=== PATIENT | female | born 1940 | race Caucasian/White ===

== ENCOUNTER → 2016-07-19 | Outpatient (CLI) | payer OTHER, BC ==
--- NOTE | 2016-07-19 12:44 | NM ---
Nuclear Medicine Whole Body Bone Scan Clinical Indications: Follow up metastasis. History of breast cancer Technique: 22.7 mCi technetium 99m MDP were injected intravenously. Delayed images of the skeleton were obtained in anterior and posterior projections. Comparison: February 16, 2016. Findings: Given differences of window leveling and technique, there has been interval response to tr eatment of the multifocal metastatic lesions of the right and left ribs and thoracic and lumbar spine . Degenerative changes of the shoulders, hips, and knees are again present. There is a right knee art hroplasty. Improved bony metastatic disease of the pelvis and femurs. Mild interval improvement of th e sternal uptake. Impression: Interval response to therapy with persistent but decreased bony metastatic disease of the axial and appendicular skeleton, as described above.
== END ==
LOC: FIMAGING 07:44
PROVIDERS: ATTEND Internal Medicine Hematology & Oncology
DX: C79.51 Secondary malignant neoplasm of bone (principal); Z85.3 Personal history of malignant neoplasm of breast
CPT/HCPCS: 78306; A9503

== ENCOUNTER → 2016-07-30 | Outpatient (CLI) | payer OTHER, BC ==
[2016-07-29 14:05] LABS: % IMMATURE GRANULOCYTES 0.4 % (0.0-1.1); ABSOLUTE IMMATURE GRANULOCYTES 0.01 10^3/uL (0-0.10); ABSOLUTE NRBC COUNT 0.02 10^3/uL (0-0.01); HEMATOCRIT 21.3 % (38.0-47.0); HEMOGLOBIN 7.1 g/dL (12.6-16.3); MEAN CELL HEMOGLOBIN CONC. 33.3 g/dL (32.4-36.7); MEAN CELL VOLUME 99.1 fL (81.5-99.8); NRBC-AUTO% 0.8 % (0.0-0.2); RED BLOOD CELL COUNT 2.15 10^6/uL (4.18-5.33); RED CELL DISTRIBUTION WIDTH 23.9 % (11.5-15.2)
[2016-07-29 14:43] LABS: ALANINE AMINOTRANSFERASE 59 IU/L (9-52); ALBUMIN 3.8 g/dL (3.5-5.0); ALKALINE PHOSPHATASE 127 IU/L (38-126); ANION GAP 12 mEq/L (8-16); ASPARTATE AMINOTRANSFERASE 79 IU/L (14-46); CALCIUM 9.1 mg/dL (8.5-10.4); CARBON DIOXIDE 24 mEq/l (22-31); CHLORIDE 103 mEq/L (97-110); CREATININE 0.8 mg/dL (0.6-1.0); GLOMERULAR FILTRATION RATE > 60; GLUCOSE 118 mg/dL (70-100); POTASSIUM 5.2 mEq/L (3.5-5.2); SODIUM 139 mEq/L (134-144); TOTAL PROTEIN 6.6 g/dL (6.3-8.2)
== END ==
LOC: RMCCLAB 07-29 06:13 → FOBOP 07:51 → EDSTATUS 07:51
PROVIDERS: ATTEND Internal Medicine Hematology & Oncology
PROC: 30233N1 Transfusion of Nonautologous Red Blood Cells into Peripheral Vein, Percutaneous Approach (ICD-10-PCS; principal; 2016-07-30)
DX: D64.81 Anemia due to antineoplastic chemotherapy (principal); C50.112 Malignant neoplasm of central portion of left female breast; C79.51 Secondary malignant neoplasm of bone
CPT/HCPCS: 36430; P9016; 86300-90

== ENCOUNTER → 2016-09-28 | Outpatient (CLI) | payer OTHER, BC ==
[2016-09-27 15:14] LABS: % IMMATURE GRANULOCYTES 0.5 % (0.0-1.1); ABSOLUTE IMMATURE GRANULOCYTES 0.02 10^3/uL (0-0.10); ABSOLUTE NRBC COUNT 0.11 10^3/uL (0-0.01); HEMATOCRIT 17.1 % (38.0-47.0); HEMOGLOBIN 5.5 g/dL (12.6-16.3); MEAN CELL HEMOGLOBIN 33.1 pg (27.9-34.1); MEAN CELL HEMOGLOBIN CONC. 32.2 g/dL (32.4-36.7); MEAN PLATELET VOLUME 11.2 fL (8.7-11.7); RED BLOOD CELL COUNT 1.66 10^6/uL (4.18-5.33)
[2016-09-27 15:16] LABS: NRBC-AUTO% 2.7 % (0.0-0.2)
[2016-09-27 15:43] LABS: ALANINE AMINOTRANSFERASE 31 IU/L (9-52); ALBUMIN 3.9 g/dL (3.5-5.0); ALKALINE PHOSPHATASE 114 IU/L (38-126); ANION GAP 10 mEq/L (8-16); ASPARTATE AMINOTRANSFERASE 57 IU/L (14-46); BILIRUBIN,TOTAL 1.1 mg/dL (0.1-1.4); CALCIUM 9.2 mg/dL (8.5-10.4); CARBON DIOXIDE 21 mEq/l (22-31); CHLORIDE 107 mEq/L (97-110); CREATININE 0.8 mg/dL (0.6-1.0); GLOMERULAR FILTRATION RATE > 60; GLUCOSE 107 mg/dL (70-100); POTASSIUM 4.4 mEq/L (3.5-5.2); SODIUM 138 mEq/L (134-144); TOTAL PROTEIN 6.7 g/dL (6.3-8.2)
[~2016-09-28] MED LIST: ALTEPLASE 2 MG VIAL IVP ONE
== END ==
LOC: RMCCLAB 09-27 07:19 → EDSTATUS 08:55 → FOBOP 08:56
PROVIDERS: ATTEND Internal Medicine Hematology & Oncology
PROC: 30233N1 Transfusion of Nonautologous Red Blood Cells into Peripheral Vein, Percutaneous Approach (ICD-10-PCS; principal; 2016-09-28)
DX: C50.112 Malignant neoplasm of central portion of left female breast (principal); D61.1 Drug-induced aplastic anemia; T45.1X5A Adverse effect of antineoplastic and immunosuppressive drugs, initial encounter; T82.599A Other mechanical complication of unspecified cardiac and vascular devices and implants, initial encounter; Z45.2 Encounter for adjustment and management of vascular access device
CPT/HCPCS: 36430; J2997; P9016; J1642

== ENCOUNTER → 2016-10-12 | Outpatient (CLI) | payer OTHER, BC ==
[~2016-10-12] MED LIST changes: -ALTEPLASE 2 MG VIAL IVP ONE; +LIDOCAINE 1% 30 ML SDV ONE; +NA BICARBONATE 50 MEQ/50 ML VIAL ONE
[2016-10-13 16:09] LABS: FINAL DIAGNOSIS See Comments; MICROSCOPIC DESCRIPTION See Comments
== END ==
LOC: FIMAGING 09:37
PROVIDERS: ATTEND Internal Medicine Hematology & Oncology
PROC: 07B13ZX Excision of Right Neck Lymphatic, Percutaneous Approach, Diagnostic (ICD-10-PCS; principal; 2016-10-12)
DX: C50.919 Malignant neoplasm of unspecified site of unspecified female breast (principal); C77.0 Secondary and unspecified malignant neoplasm of lymph nodes of head, face and neck
CPT/HCPCS: 88184-90; 88185-91

== ENCOUNTER 2016-10-22 09:37 | Outpatient (CLI) | payer OTHER, BC ==
[2016-10-21 14:35] LABS: % IMMATURE GRANULOCYTES 0.5 % (0.0-1.1); ABSOLUTE IMMATURE GRANULOCYTES 0.02 10^3/uL (0-0.10); ABSOLUTE NRBC COUNT 0.14 10^3/uL (0-0.01); HEMATOCRIT 21.7 % (38.0-47.0); MEAN CELL HEMOGLOBIN 30.7 pg (27.9-34.1); MEAN CELL HEMOGLOBIN CONC. 32.3 g/dL (32.4-36.7); MEAN CELL VOLUME 95.2 fL (81.5-99.8); MEAN PLATELET VOLUME 10.3 fL (8.7-11.7); RED BLOOD CELL COUNT 2.28 10^6/uL (4.18-5.33); RED CELL DISTRIBUTION WIDTH 20.1 % (11.5-15.2)
[2016-10-21 14:42] LABS: NRBC-AUTO% 3.6 % (0.0-0.2)
[2016-10-21 15:40] LABS: ALANINE AMINOTRANSFERASE 38 IU/L (9-52); ALKALINE PHOSPHATASE 149 IU/L (38-126); ANION GAP 13 mEq/L (8-16); ASPARTATE AMINOTRANSFERASE 64 IU/L (14-46); CALCIUM 9.5 mg/dL (8.5-10.4); CARBON DIOXIDE 21 mEq/l (22-31); CHLORIDE 106 mEq/L (97-110); CREATININE 0.7 mg/dL (0.6-1.0); GLOMERULAR FILTRATION RATE > 60; GLUCOSE 99 mg/dL (70-100); SODIUM 140 mEq/L (134-144); TOTAL PROTEIN 7.2 g/dL (6.3-8.2)
[2016-10-22] MEDS ORDERED: ALTEPLASE 2 MG VIAL IVP ONE (10:30)
== END 2016-10-22 16:25 | disposition home or self-care (01) ==
LOC: FOBOP 09:37
PROVIDERS: ATTEND Internal Medicine Hematology & Oncology
PROC: 30243N1 Transfusion of Nonautologous Red Blood Cells into Central Vein, Percutaneous Approach (ICD-10-PCS; principal; 2016-10-22)
DX: C50.112 Malignant neoplasm of central portion of left female breast (principal); D64.81 Anemia due to antineoplastic chemotherapy; Z45.2 Encounter for adjustment and management of vascular access device
CPT/HCPCS: 36430; J1642; J2997; P9016; P9021

== ENCOUNTER 2016-11-08 23:38 | Emergency (ER) | payer OTHER, BC ==
[2016-11-08 23:47] VITALS: PULSE 88; TEMP 98.2
[2016-11-09 01:03] LABS: % IMMATURE GRANULYOCYTES 0.7 % (0.0-1.1); ABSOLUTE IMMATURE GRANULOCYTES 0.01 10^3/uL (0.00-0.10); ADD DIFF? NO; ADD MORPH? NO; ADD SCAN? YES; ANION GAP 8 mEq/L (8-16); ATYPICAL LYMPHOCYTE FLAG 0 (0-99); CALCIUM 9.2 mg/dL (8.5-10.4); CARBON DIOXIDE 25 mEq/l (22-31); CHLORIDE 107 mEq/L (97-110); CREATININE 0.9 mg/dL (0.6-1.0); FRAGMENT RBC FLAG 20 (0-99); GLOMERULAR FILTRATION RATE > 60; GLUCOSE 109 mg/dL (70-100); HEMATOCRIT 20.9 % (38.0-47.0); LEFT SHIFT FLG 10 (0-99); LIPEMIA HEMOLYSIS FLAG 80 (0-99); MEAN CELL HEMOGLOBIN 29.5 pg (27.9-34.1); MEAN CELL HEMOGLOBIN CONCENTR. 33.5 g/dL (32.4-36.7); MEAN CELL VOLUME 88.2 fL (81.5-99.8); MEAN PLATELET VOLUME 12.6 fL (8.7-11.7); PLATELET CLUMPS FLAG 0 (0-99); PLATELET COUNT 56 10^3/uL (150-400); POTASSIUM 4.7 mEq/L (3.5-5.2); RED BLOOD CELL COUNT 2.37 10^6/uL (4.18-5.33); RED CELL DISTRIBUTION WIDTH 17.1 % (11.5-15.2); SODIUM 140 mEq/L (134-144)
[2016-11-09] MEDS ORDERED: fentaNYL 100 MCG/2 ML INJ IVP ONE (01:07)
[2016-11-09 01:36] LABS: SCAN POSITIVE
[2016-11-09 01:46] LABS: HYPOCHROMIA 1+; MACROCYTES 1+; MICROCYTES 1+; PLATELET ESTIMATE DECREASED (ADEQ)
[2016-11-09 02:05] LABS: COLOR YELLOW; LEUKOCYTE ESTERASE,URINE 3+ (NEGATIVE); NITRITE,URINE NEGATIVE (NEGATIVE)
[2016-11-09 02:18] LABS: BACTERIA TRACE /hpf (NONE SEEN); MUCUS TRACE /lpf (NONE-1+)
--- NOTE | 2016-11-09 02:18 | EDPHY ---
H & P Stated Complaint: back and left leg pain, since 1700 Time Seen by Provider: 11/08/16 23:59 HPI/ROS: Chief Complaint: Back and leg pain HPI: 76-year-old woman with a history of metastatic breast cancer presenting with new onset of bilateral back and leg pain that started about 5 o'clock yesterday afternoon. Patient has taken 2 doses of Advil without significant relief. No new numbness or weakness. She is ambulating with some difficulty. Does not have a history of the same. No falls or recent trauma. He does have known metastasis to the lumbar spine. She also recently started Ibrance and Faslodex 2 weeks ago. She is a patient Dr. Bajwa. No fevers or chills. No chest pain or shortness of breath. No cough. No abdominal pain. No urinary urgency or frequency. ROS: 10 point Review of Systems is negative except as noted in the HPI. PMH: Metastatic breast cancer Social History: [No] smoking, [no] alcohol, [ no recreational drug use] Family History: [non-contributory] Physical Exam: Gen: [Awake], [Alert], [No Distress] HEENT: [ ] [Nose: no rhinorrhea] Eyes: [PERRLA], [EOMI] Mouth: [Moist mucosa] [] Neck: [Supple], [no JVD] Chest: [nontender], [lungs clear to auscultation] Heart: [S1, S2 normal], [no murmur] Abd: [Soft], [non-tender], [no guarding] Back: [no CVA tenderness], [no] midline tenderness, moderate bilateral paraspinal tenderness extending down her bilateral gluteus muscles. Ext: [no] edema, bilateral thigh flexors and extensors tenderness which is mild. Skin: [no rash] Neuro: [CN II-XII intact], [Sensation grossly intact], Strength [5]/5 in [ bilateral] [upper and] [lower] extremities in both proximal and distal flexors and extensors. - Personal History Current Tetanus/Diphtheria Vaccine: Unsure Current Tetanus Diphtheria and Acellular Pertussis (TDAP): Unsure - Medical/Surgical History Hx Asthma: No Hx Chronic Respiratory Disease: No Hx Diabetes: No Hx Cardiac Disease: No Hx Renal Disease: No Hx Cirrhosis: No Hx Alcoholism: No Hx HIV/AIDS: No Hx Splenectomy or Spleen Trauma: No Other PMH: Last chemo Jul 22, reviewing plans; right knee replacement; left lumpectomy; metastatic cancer to bones; high cholesterol; DVT in right leg Dx , now xarelto - Social History Smoking Status: Never smoked Constitutional: Initial Vital Signs Temperature (C) 36.8 C 11/08/16 23:43 Heart Rate 88 11/08/16 23:43 Respiratory Rate 16 11/08/16 23:43 Blood Pressure 133/81 H 11/08/16 23:43 O2 Sat (%) 95 11/08/16 23:43 O2 Delivery Mode Room Air Allergies/Adverse Reactions: codeine [Codeine] Allergy (Severe, Verified 07/12/10 09:51) Vomiting Home Medications: Medication Instructions Recorded Atorvastatin Calcium [Lipitor 20 20 mg PO HS 02/19/16 mg (*)] Calcium Carb W/Vit D [Calcium Carb 3 tab PO BID 02/19/16 W/Vit D 500/200 (*)] Cholecalciferol Vit D3 [Vitamin D3 2,000 units PO DAILY 02/19/16 2000 units tab (OTC)] Citalopram Hydrobromide 10 mg PO DAILY 02/19/16 [Citalopram HBr] Fluticasone Nasal [Flonase Nasal 2 sprays NASAL PRN PRN 02/19/16 [place]] Ibuprofen [Advil] 2 tab PO PRN PRN 10/22/16 Faslodex 11/08/16 Ibrance 11/08/16 Medical Decision Making ED Course/Re-evaluation: Patient with bilateral back and lower extremity myalgias. She has no neurologic symptoms today. Plain films of her lumbar spine and pelvis are not suggestive of acute pathologic fracture at this time. Patient's pain is improved with IV fentanyl. She is pancytopenic secondary to her chemotherapy. I have discussed with , on-call for Dr. Bajwa. He does not feel she needs any further workup at this time. On her pain is controlled she can be discharged home and she will follow up with Dr. Bajwa later this morning. Patient is in agreement with this plan. Will discharge with follow-up later today. - Data Points Laboratory Results: Laboratory Results 11/09/16 00:45 11/09/16 00:45 11/09/16 11/09/16 11/09/16 01:55 00:45 00:45 WBC RBC Hgb Hct MCV MCH MCHC RDW Plt Count MPV Neut % (Auto) Lymph % (Auto) [place] % (Auto) Eos % (Auto) Baso % (Auto) Nucleat RBC Rel Count Absolute Neuts (auto) Absolute Lymphs (auto) Absolute Monos (auto) Absolute Eos (auto) Absolute Basos (auto) Absolute Nucleated RBC Immature Gran % Seg Neutrophils % Band Neutrophils % Lymphocytes % Monocytes % Immature Gran # Absolute Seg Neuts Absolute Band Neuts Absolute Lymphocytes Absolute Monocytes Platelet Estimate Hypochromasia Microcytic Cells Tear Drop Cells Oval Macrocytes Sodium 140 mEq/L mEq/L (134-144) Potassium 4.7 mEq/L mEq/L (3.5-5.2) Chloride 107 mEq/L mEq/L (97-110) Carbon Dioxide 25 mEq/l mEq/l (22-31) Anion Gap 8 mEq/L mEq/L (8-16) BUN 23 mg/dL mg/dL (7-23) Creatinine 0.9 mg/dL mg/dL (0.6-1.0) Estimated GFR > 60 Glucose 109 mg/dL H mg/dL (70-100) Calcium 9.2 mg/dL mg/dL (8.5-10.4) Creatine Kinase 113 IU/L IU/L (0-156) Urine Color YELLOW Urine Appearance CLEAR Urine pH 5.0 (5.0-7.5) Ur Specific [place] 1.017 (1.002-1.030) Urine Protein NEGATIVE (NEGATIVE) Urine Ketones NEGATIVE (NEGATIVE) Urine Blood NEGATIVE (NEGATIVE) Urine Nitrate NEGATIVE (NEGATIVE) Urine Bilirubin NEGATIVE (NEGATIVE) Urine Urobilinogen NEGATIVE EU EU (0.2-1.0) Ur Leukocyte Esterase 3+ H (NEGATIVE) Urine RBC Pending Urine WBC Pending Ur Epithelial Cells Pending Urine Glucose NEGATIVE (NEGATIVE) 11/09/16 00:45 WBC 1.50 10^3/uL L 10^3/uL (3.80-9.50) RBC 2.37 10^6/uL L 10^6/uL (4.18-5.33) Hgb 7.0 g/dL L g/dL (12.6-16.3) Hct 20.9 % L % (38.0-47.0) MCV 88.2 fL fL (81.5-99.8) MCH 29.5 pg pg (27.9-34.1) MCHC 33.5 g/dL g/dL (32.4-36.7) RDW 17.1 % H % (11.5-15.2) Plt Count 56 10^3/uL L 10^3/uL (150-400) MPV 12.6 fL H fL (8.7-11.7) Neut % (Auto) 39.4 % % (39.3-74.2) Lymph % (Auto) 53.3 % H % (15.0-45.0) [place] % (Auto) 5.3 % % (4.5-13.0) Eos % (Auto) 1.3 % % (0.6-7.6) Baso % (Auto) 0.0 % L % (0.3-1.7) Nucleat RBC Rel Count 0.0 % % (0.0-0.2) Absolute Neuts (auto) 0.59 10^3/uL L 10^3/uL (1.70-6.50) Absolute Lymphs (auto) 0.80 10^3/uL L 10^3/uL (1.00-3.00) Absolute Monos (auto) 0.08 10^3/uL L 10^3/uL (0.30-0.80) Absolute Eos (auto) 0.02 10^3/uL L 10^3/uL (0.03-0.40) Absolute Basos (auto) 0.00 10^3/uL L 10^3/uL (0.02-0.10) Absolute Nucleated RBC 0.00 10^3/uL 10^3/uL (0-0.01) Immature Gran % 0.7 % % (0.0-1.1) Seg Neutrophils % 41 % % Band Neutrophils % 2 % % Lymphocytes % 56 % % Monocytes % 1 % % Immature Gran # 0.01 10^3/uL 10^3/uL (0.00-0.10) Absolute Seg Neuts 0.62 10^/uL L 10^/uL (1.70-6.50) Absolute Band Neuts 0.03 10^3/uL 10^3/uL (0.00-0.70) Absolute Lymphocytes 0.84 10^3/uL L 10^3/uL (1.00-3.00) Absolute Monocytes 0.02 10^3/uL L 10^3/uL (0.30-0.80) Platelet Estimate DECREASED L (ADEQ) Hypochromasia 1+ H Microcytic Cells 1+ H Tear Drop Cells 1+ H Oval Macrocytes 1+ H Sodium Potassium Chloride Carbon Dioxide Anion Gap BUN Creatinine Estimated GFR Glucose Calcium Creatine Kinase Urine Color Urine Appearance Urine pH Ur Specific [place] Urine Protein Urine Ketones Urine Blood Urine Nitrate Urine Bilirubin Urine Urobilinogen Ur Leukocyte Esterase Urine RBC Urine WBC Ur Epithelial Cells Urine Glucose Medications Given: Discontinued Medications Fentanyl (Sublimaze) 50 mcg IVP EDNOW ONE Stop: 11/09/16 01:08 Last Admin: 11/09/16 01:16 Dose: 50 mcg Morphine Sulfate (Morphine) 4 mg IVP ONCE ONE Stop: 11/09/16 01:06 Last Admin: 11/09/16 02:09 Dose: Not Given Departure - Departure Disposition: Home, Routine, Self-Care Clinical Impression: Leg pain, Back pain Condition: Good Instructions: Musculoskeletal Pain (ED) Additional Instructions: You may take hydrocodone 1-2 every 4 hours as needed for pain. Follow up with Dr. Bajwa later this morning. Referrals: Melissa Baker MD [Primary Care Provider] - As per Instructions John Bajwa MD [Medical Doctor] - As per Instructions
[2016-11-09] MEDS ORDERED: OXYCODONE/APAP 5/325 TAB PO ONE ×2 (02:20→02:38)
[2016-11-09] MEDS ORDERED: OXYCODONE/APAP 5/325 TAB ONE (02:20)
[2016-11-09] MEDS ORDERED: OXYCODONE/APAP 5/325MG PREPACK#4 BTL TAKEHOME ONE (03:48)
[2016-11-09 04:15] VITALS: BP 148/87; RESP 18; O2SAT 93
== END 2016-11-09 04:15 | disposition home or self-care (01) ==
DX: M54.9 Dorsalgia, unspecified (principal); M79.605 Pain in left leg; Z79.01 Long term (current) use of anticoagulants; Z85.3 Personal history of malignant neoplasm of breast
CPT/HCPCS: 72100; 72170; 96374; 99284; J1642; J3010

== ENCOUNTER 2016-11-09 12:53 | Inpatient (IN) | payer OTHER, BC ==
[2016-11-09] MEDS ORDERED: ONDANSETRON 4 MG/2 ML VIAL IVP PRN (13:47)
[2016-11-09] MEDS ORDERED: HYDROCODONE/APAP 5/325 TAB PO PRN (13:47)
[2016-11-09] MEDS ORDERED: ACETAMINOPHEN 325 MG TAB PO PRN (13:47)
[2016-11-09] MEDS ORDERED: HYDROmorphONE/DILAUDID 1 MG/ML SYR IVP PRN (13:47)
[2016-11-09] MEDS ORDERED: LORazepam 2 MG/ML INJ IVP PRN (13:47)
[2016-11-09] MEDS ORDERED: ONDANSETRON DISINTEGRATING 4 MG TAB PO PRN (13:47)
[2016-11-09] MEDS ORDERED: NS 1,000 ML IV ONE (13:47)
[2016-11-09] MEDS ORDERED: FLUTICASONE NASAL 120 SPRAYS/16 GM MDI EACHNARE PRN (15:13)
[2016-11-09] MEDS ORDERED: IBUPROFEN 200 MG TAB PO PRN (15:13)
[2016-11-09] MEDS ORDERED: Palbociclib [Ibrance] 125 MG PO SCH (15:15)
[2016-11-09] MEDS ORDERED: BISACODYL 10 MG SUPP PR PRN (15:23)
[2016-11-09] MEDS ORDERED: POLYETHYLENE GLYCOL 3350 17 GM PKT PO PRN (15:23)
[2016-11-09] MEDS ORDERED: MAGNESIUM HYDROXIDE 30 ML UDCUP PO PRN (15:23)
[2016-11-09] MEDS ORDERED: LACTULOSE 20 GM/30 ML UDCUP PO PRN (15:23)
--- NOTE | 2016-11-09 16:09 | GHP ---
[f rep st] HISTORY AND PHYSICAL DATE OF ADMISSION: 11/09/2016 CHIEF COMPLAINT: Back pain. HISTORY OF PRESENT ILLNESS: A 76-year-old female with a history of metastatic recurrent breast [facility] who presents with sudden onset of severe lumbar back pain in the several days preceding her prese ntation. The patient noted initially pain on 1 side then on both and then over the course of the 24 hours prior to presentation developed some associated groin and leg pain. She describes the pain a s throbbing. Denies any numbness or tingling. Denies any loss of bowel or bladder control. Denies any pain higher in her spine. Does endorse that the discomfort is more severe on the left side than it is on the right. The patient denies any vision changes, headaches, lightheadedness, dysphagia, chest pain, shortness of breath, abdominal discomfort. She has experienced some nausea with the chiqui n and has been unable to tolerate oral pain medications. Denies any dysuria and hematuria, any lowe r extremity edema, any rashes. PAST MEDICAL HISTORY: Breast cancer recurrence with known bony metastases. SOCIAL HISTORY: Patient does not smoke cigarettes. Drinks occasional alcohol. Denies any illicit drugs. She has used marijuana recently in an attempt to stimulate her appetite. FAMILY HISTORY: Positive for a brother who passed in his 40s she thinks may have had breast cancer, but is not positive. ADVANCED DIRECTIVES: The patient wishes to be do not resuscitate. Her Tan would be her m edical decision maker. REVIEW OF SYSTEMS: A 10-point review of systems is negative with the exception of that reported in the history of present illness. PHYSICAL EXAMINATION: VITAL SIGNS: Blood pressure 161/89, heart rate 97, respiratory rate 18, 91% on room air, 37.5. GENERAL: This is an ill-appearing, middle-aged female, lying flat in bed. HEEN T: Notable for dry mucous membranes. Eye exam is negative for any icterus. CARDIAC: Patient is r egular rate and rhythm. She does have a systolic murmur heard best at the left sternal border. PUL MONARY: Good respiratory effort. Clear to auscultation bilaterally. GASTROINTESTINAL: Positive b owel sounds. Abdomen is soft, nontender in all 4 quadrants. MUSCULOSKELETAL: Negative for any lo wer extremity edema. The patient does not have point tenderness along her spinous processes until h er lumbar spine, more notably in the paraspinal muscles on the left than the right. Her sensation i s intact throughout and her strength is intact throughout. SKIN: Negative for any rashes. PSYCHIA TRIC: She is pleasant and cooperative on the interview and examination. DATA: White count 1.5, hematocrit 20.9, hemoglobin of 7, platelet count of 56. Creatinine 0.9, neil cium is 9.2. Urinalysis shows 3-5 white blood cells. X-ray of the pelvis obtained by the emergency department that I personally reviewed and interpreted shows no obvious fractures. They do note scattered sclerotic lesions in the lower pelvis. ASSESSMENT AND PLAN: This is a 76-year-old female with metastatic recurrent breast cancer, presenti with back pain. 1. Severe back pain, certainly concerning for possible metastases to the lumbar spine. The patient has some neurologic symptoms below with radiated pain. Denies any bowel or bladder incontinence. Will order MRI imaging of the lumbar spine. Have ordered IV oral pain medications as well as antiem etics and will follow imaging for potential treatment with steroids. 2. Metastatic breast cancer. The patient will be seen by Oncology. She is actively receiving michael tment. They will make recommendations on ongoing care. 3. Pancytopenia secondary to cancer treatment. Will continue to follow the patient's cell counts. Hemoglobin is 7. Will transfuse the patient with packed red blood cells. 4. Hypertension. I suspect this is related to pain as she does not have a history of elevated bloo d pressure. We will follow with adequate pain control. 5. Prophylaxis with Lovenox. 6. Diet regular. DISPOSITION: I expect greater than 2 midnights as the patient is presenting with pain complaints li young related to progressing cancer diagnosis. I have discussed the case with Oncology. Rik ogden be triaged to [address] [place] [address] for imaging and care. /[id number]/MODL
--- NOTE | 2016-11-09 17:19 | GCON ---
[f rep st] CONSULTATION MEDICAL ONCOLOGY FOLLOWUP CONSULTATION REFERRING PHYSICIAN: Lara Bishop MD REASON FOR CONSULTATION: Ongoing management of metastatic breast cancer and acute back pain. RECOMMENDATIONS: 1. Agree with MRI of the lumbar spine to try to determine the cause of her sudden onset of pain. 2. Agree with transfusion as you are doing. 3. Agree with efforts at pain control. 4. Specific treatment of the pain in her back will depend on the etiology. ASSESSMENT: This 76-year-old, white female with a history of breast cancer dating back to 1998 pres ented yesterday with sudden onset of low back pain with radiation into her legs. She does not recal l any trauma. She did not recall any twisting. She did not lift any heavy loads. She is not repor ting any incontinence. Patient to the emergency room last night with the pain. Plain films did not show any obvious fracture. She presented again today to the office for further evaluation. Shirin wen of the severity of her pain as well as the need for blood transfusion, she was admitted for furthe r evaluation. The patient's breast cancer of her left breast was diagnosed in 1998. At that time, she had stage I IA. She was ER positive and [place] positive but HER2 negative. She initially had lumpectomy and axilla ry lymph node dissection. She received adjuvant therapy with doxorubicin, cyclophosphamide, and pac litaxel. She subsequently went on to radiation therapy to the left breast and followed that with ap proximately 5 years of antiestrogen therapy. She was on tamoxifen for 3 years followed by letrozole for 2 years finishing in 2004. Unfortunately, she had recurrence of her breast cancer. She was pl aced on exemestane. She was also treated on clinical trial with abemaciclib. Unfortunately, she sh owed progression on clinical trial and most recently was begun on Faslodex and Ibrance. Her first d ose of Faslodex was only approximately 1 week ago. It is too early to see response at this time. The differential diagnosis for her back pain includes nonmalignant causes such as disk disease or po tentially a compression fracture, but it is also quite possible she may have a metastatic lesion the re. Depending on what her MRI shows, will make recommendations for specific therapy. If it does ap pear to be malignant, she may benefit from a short course of radiation. If there is a fracture, padmaja ogden need to evaluate whether she is candidate for kyphoplasty or not. HISTORY OF PRESENT ILLNESS: Please see assessment. PAST MEDICAL HISTORY: Remarkable for her metastatic breast cancer. She had disease noted in her ri ght supraclavicular lymph node which was consistent with her breast carcinoma. The biopsy continued to be ER/AZ positive and HER2 negative. Her past medical history is also remarkable for osteopenia . FAMILY HISTORY: Remarkable for her mother having had colon cancer. Her brother of an unknown type of abdominal malignancy at age 40. SOCIAL HISTORY: She is to Tan who is at the bedside today. REVIEW OF SYSTEMS: Remarkable for fatigue, low back pain with radiation to legs. She does not repo rt any incontinence of bowel or bladder. She has had some nausea especially when she takes pain med ication. A 10 system review is otherwise unremarkable. PHYSICAL EXAMINATION: GENERAL: Reveals a pale but alert and conversant white female. She is in mo derate distress with movement. HEENT: Shows pallor. LUNGS: Clear to auscultation anteriorly and posteriorly. CARDIAC: Shows regular rate and rhythm. ABDOMEN: Shows active bowel sounds. Soft a bdomen. MUSCULOSKELETAL: Shows no significant tenderness to palpation of her lumbar spine. She do es have some pain with pressure on the pubic symphysis. NEUROLOGIC: She is alert and oriented x3. She has no focal motor deficits. She does not have a Babinski on either side bilaterally. LABORATORY EXAM: From today showed a white count of 1.5 with a hemoglobin of 7.0 and a platelet cou nt of 56,000. Her chemistries from today show sodium of 140. Her creatinine is 0.9. Potassium is 4.7, glucose is 109. Alkaline phosphatase is slightly elevated at 139; however, the alkaline phosph atase was from the October. Her MRI is pending. Thank you very much for allowing us to continue to participate in this pleasant woman's oncologic ca re. We will look forward to assisting with her management during this hospitalization and beyond. Copy requested to: Dr. Lopez /[id number]/MODL
[2016-11-09] MEDS ORDERED: GADOBUTROL 10 ML VIAL IVP ONE (17:45)
[2016-11-09] MEDS ORDERED: ATORVASTATIN CALCIUM 20 MG TAB PO SCH (21:00)
[2016-11-09] MEDS: SENNOSIDES/DOCUSATE SODIUM TAB PO SCH (21:24)
[2016-11-09] MEDS: CALCIUM CARB W/VIT D 500 MG TAB PO SCH (21:24)
[2016-11-10 04:52] LABS: % IMMATURE GRANULYOCYTES 1.6 % (0.0-1.1); ABSOLUTE IMMATURE GRANULOCYTES 0.02 10^3/uL (0.00-0.10); ADD DIFF? NO; ADD MORPH? NO; ADD SCAN? YES; ATYPICAL LYMPHOCYTE FLAG 0 (0-99); FRAGMENT RBC FLAG 0 (0-99); HEMATOCRIT 23.2 % (38.0-47.0); HEMOGLOBIN 7.9 g/dL (12.6-16.3); LEFT SHIFT FLG 50 (0-99); LIPEMIA HEMOLYSIS FLAG 90 (0-99); MEAN CELL HEMOGLOBIN 29.3 pg (27.9-34.1); MEAN CELL HEMOGLOBIN CONCENTR. 34.1 g/dL (32.4-36.7); MEAN CELL VOLUME 85.9 fL (81.5-99.8); PLATELET CLUMPS FLAG 0 (0-99); RED CELL DISTRIBUTION WIDTH 15.9 % (11.5-15.2)
[2016-11-10 04:55] LABS: PLATELET COUNT 21 10^3/uL (150-400)
[2016-11-10 05:24] LABS: SCAN NEGATIVE
[2016-11-10 05:26] LABS: PLATELET ESTIMATE DECREASED (ADEQ)
[2016-11-10 05:28] LABS: ANION GAP 10 mEq/L (8-16); CALCIUM 9.1 mg/dL (8.5-10.4); CARBON DIOXIDE 24 mEq/l (22-31); CHLORIDE 109 mEq/L (97-110); CREATININE 0.6 mg/dL (0.6-1.0); GLOMERULAR FILTRATION RATE > 60; GLUCOSE 144 mg/dL (70-100); POTASSIUM 4.1 mEq/L (3.5-5.2); SODIUM 143 mEq/L (134-144)
[2016-11-10] MEDS ORDERED: CITALOPRAM 20 MG TAB PO SCH (09:00)
[2016-11-10] MEDS ORDERED: ENOXAPARIN 40 MG/0.4 ML SYR SC SCH (09:00)
[2016-11-10] MEDS ORDERED: CHOLECALCIFEROL VIT D3 2,000 UNITS TAB/CAP PO SCH (09:00)
[2016-11-10] MEDS: CALCIUM CARB W/VIT D 500 MG TAB PO SCH (09:19)
[2016-11-10] MEDS: SENNOSIDES/DOCUSATE SODIUM TAB PO SCH (09:20)
--- NOTE | 2016-11-10 09:55 | SOAPPROG ---
[facility] Progress Note Assessment/Plan: Assessment: - Back pain - probably related to L scaral insufficiency fracture and maybe L5 nerve root compression. Better this AM. - thrombocytopenia - plts 21k. No bleeding. Ibrance held - Bone mets - known and currently being treated Plan: - Hold Ibrance - OK for discharge - f/u with Dr. Bajwa as planned on 11/11/16 - he will recheck plts then - Send home with hydrocodone/APAP in case pain reoccurs Subjective: Pain has resolved. She went walking with her . Objective: Vital Signs Temp Pulse Resp BP Pulse Ox 37.1 C 90 18 124/68 H 95 11/10/16 09:13 11/10/16 09:13 11/10/16 09:13 11/10/16 09:13 11/10/16 09:13 Laboratory Results 11/10/16 04:40 11/10/16 04:40 11/08/16 11/09/16 11/10/16 23:59 23:59 23:59 Intake Total 1000 500 Balance 1000 500 Physical Exam - Physical Exam General Appearance: alert, no apparent distress Respiratory: lungs clear Cardiac/Chest: regular rate, rhythm Abdomen: normal bowel sounds ICD10 Worksheet Patient Problems: Problems Problem Status Onset Syncope Acute
--- NOTE | 2016-11-10 10:09 | PDDCSUM ---
Discharge Summary Discharge Summary: Dates of service 11/09-11/10/16 Consultations: oncology Procedures performed: lumbar MRI Hospital course by problem: # sacral insufficiency fracture: in the setting of known bony mets, pain now essentially largely resolved # lumbar radiculopathy: presented with back and groin pain with MRI showing lumbar disc herniation as well as L5 nerve root compression, pain is essentially resolved and only requiring minimal pain medications. Discharged with short course of oral dilaudid and pain very well controlled currently # metastatic breast cancer: with known bony involvement, will f/u with oncology as previously scheduled, has an appt tomorrow # pancytopenia: related to above, stable Dc home, f/u with oncology Meds: see EHR > 35 minutes spent in dc of patient, more than half in face to face counseling regarding f/u care plan
[2016-11-10 11:12] VITALS: BP 122/68; PULSE 85; RESP 16; TEMP 98; O2SAT 94
== END 2016-11-10 14:49 | disposition home or self-care (01) | DRG 542 ==
LOC: F1N 13:27
PROVIDERS: ADMIT Family Medicine; ATTEND Internal Medicine
PROC: 30233P1 Transfusion of Nonautologous Frozen Red Cells into Peripheral Vein, Percutaneous Approach (ICD-10-PCS; principal; 2016-11-09)
DX: M84.58XA Pathological fracture in neoplastic disease, other specified site, initial encounter for fracture (principal); D61.810 Antineoplastic chemotherapy induced pancytopenia; C79.51 Secondary malignant neoplasm of bone; C50.919 Malignant neoplasm of unspecified site of unspecified female breast; Z66 Do not resuscitate
CPT/HCPCS: 96374; 97161-GP; 97166-GO; A9585; G8978-GP-CH; G8979-GP-CH; G8980-GP-CH; G8987-GO-CI; G8988-GO-CI; G8989-GO-CI; J1170; J1200; J1642; J1650; J2405; J3010; P9016

== ENCOUNTER → 2016-11-11 | Outpatient (CLI) | payer OTHER, BC | LOC: FOBOP 12:11 | PROVIDERS: ATTEND Internal Medicine Hematology & Oncology | PROC: 30243R1 Transfusion of Nonautologous Platelets into Central Vein, Percutaneous Approach (ICD-10-PCS; principal; 2016-11-11) | DX: D64.81 Anemia due to antineoplastic chemotherapy (principal); C50.919 Malignant neoplasm of unspecified site of unspecified female breast | CPT/HCPCS: 36430; P9035 ==

== ENCOUNTER 2016-11-19 09:44 | Outpatient (CLI) | payer OTHER, BC | END 2016-11-19 15:58 | disposition home or self-care (01) | LOC: FOBOP 09:44 | PROVIDERS: ATTEND Internal Medicine Hematology & Oncology | PROC: 30243N1 Transfusion of Nonautologous Red Blood Cells into Central Vein, Percutaneous Approach (ICD-10-PCS; principal; 2016-11-19) | DX: D64.81 Anemia due to antineoplastic chemotherapy (principal); C50.919 Malignant neoplasm of unspecified site of unspecified female breast | CPT/HCPCS: 36430; J1642; P9016 ==

== ENCOUNTER → 2016-12-21 | Day surgery (SDC) | payer OTHER, BC ==
[2016-12-21 12:38] VITALS: BP 109/56; PULSE 88; RESP 16; TEMP 99.3; O2SAT 94
== END | disposition home or self-care (01) ==
LOC: FOBOP 09:58
PROVIDERS: ATTEND Internal Medicine Hematology & Oncology
PROC: 30233N1 Transfusion of Nonautologous Red Blood Cells into Peripheral Vein, Percutaneous Approach (ICD-10-PCS; principal; 2016-12-21)
DX: D61.1 Drug-induced aplastic anemia (principal); T45.1X5A Adverse effect of antineoplastic and immunosuppressive drugs, initial encounter; C50.919 Malignant neoplasm of unspecified site of unspecified female breast; C79.51 Secondary malignant neoplasm of bone
CPT/HCPCS: 36430; P9016; J1642

== ENCOUNTER 2017-01-13 08:23 | Outpatient (CLI) | payer OTHER, BC ==
[2017-01-13] MEDS ORDERED: ALTEPLASE 2 MG VIAL IVP ONE (10:00)
[2017-01-13] MEDS ORDERED: ACETAMINOPHEN 325 MG TAB ONE (12:55)
[2017-01-13] MEDS ORDERED: ACETAMINOPHEN 325 MG TAB PO ONE (13:15)
== END 2017-01-13 15:30 | disposition home or self-care (01) ==
LOC: FOBOP 08:23
PROVIDERS: ATTEND Internal Medicine Hematology & Oncology
PROC: 30233N1 Transfusion of Nonautologous Red Blood Cells into Peripheral Vein, Percutaneous Approach (ICD-10-PCS; principal; 2017-01-13)
DX: C50.112 Malignant neoplasm of central portion of left female breast (principal); Z45.2 Encounter for adjustment and management of vascular access device
CPT/HCPCS: 36430; J1200; J1642; J2997; P9016

== ENCOUNTER → 2017-02-15 | Day surgery (SDC) | payer OTHER, BC ==
[2017-02-15] MEDS: ALTEPLASE 2 MG VIAL IVP ONE ×2 (12:33→12:45)
== END | disposition home or self-care (01) ==
LOC: FOBOP 08:34
PROVIDERS: ATTEND Internal Medicine Hematology & Oncology
PROC: 30233N1 Transfusion of Nonautologous Red Blood Cells into Peripheral Vein, Percutaneous Approach (ICD-10-PCS; principal; 2017-02-15)
DX: C50.112 Malignant neoplasm of central portion of left female breast (principal); D64.81 Anemia due to antineoplastic chemotherapy; Z17.0 Estrogen receptor positive status [ER+]
CPT/HCPCS: 36430; P9016; J1642; J2997

== ENCOUNTER 2017-03-15 08:37 | Outpatient (CLI) | payer OTHER, BC ==
[2017-03-15] MEDS ORDERED: ALTEPLASE 2 MG VIAL IVP ONE (10:00)
== END 2017-03-15 15:20 | disposition home or self-care (01) ==
LOC: FOBOP 08:37
PROVIDERS: ATTEND Internal Medicine Hematology & Oncology
PROC: 30233N1 Transfusion of Nonautologous Red Blood Cells into Peripheral Vein, Percutaneous Approach (ICD-10-PCS; principal; 2017-03-15)
DX: C50.919 Malignant neoplasm of unspecified site of unspecified female breast (principal)
CPT/HCPCS: 36430; J1642; J2997; P9016

== ENCOUNTER 2017-04-04 08:57 | Outpatient (CLI) | payer OTHER, BC ==
[2017-04-04] MEDS ORDERED: diphenhydrAMINE 25 MG CAP PO ONE (09:45)
== END 2017-04-04 14:00 | disposition home or self-care (01) ==
LOC: FOBOP 08:57
PROVIDERS: ATTEND Internal Medicine Hematology & Oncology
PROC: 30243N1 Transfusion of Nonautologous Red Blood Cells into Central Vein, Percutaneous Approach (ICD-10-PCS; principal; 2017-04-04)
DX: C50.919 Malignant neoplasm of unspecified site of unspecified female breast (principal)
CPT/HCPCS: 36430; J1642; P9016

== ENCOUNTER → 2017-04-06 | Outpatient (CLI) | payer OTHER, BC | LOC: FIMAGING 15:06 | PROVIDERS: ATTEND Internal Medicine Hematology & Oncology | DX: J18.9 Pneumonia, unspecified organism (principal); C50.912 Malignant neoplasm of unspecified site of left female breast; Z90.12 Acquired absence of left breast and nipple ==

== ENCOUNTER → 2017-04-18 | Outpatient (CLI) | payer OTHER, BC ==
[~2017-04-18] MED LIST changes: -LIDOCAINE 1% 30 ML SDV ONE; -NA BICARBONATE 50 MEQ/50 ML VIAL ONE; +diphenhydrAMINE 25 MG CAP PO ONE
== END ==
LOC: FOBOP 10:35
PROVIDERS: ATTEND Internal Medicine Hematology & Oncology
PROC: 30233N1 Transfusion of Nonautologous Red Blood Cells into Peripheral Vein, Percutaneous Approach (ICD-10-PCS; principal; 2017-04-18)
DX: D64.81 Anemia due to antineoplastic chemotherapy (principal); C50.919 Malignant neoplasm of unspecified site of unspecified female breast; C79.51 Secondary malignant neoplasm of bone; E86.0 Dehydration
CPT/HCPCS: 36430; J1642; P9016

== ENCOUNTER 2017-05-16 08:57 | Outpatient (CLI) | payer OTHER, BC ==
[2017-05-16 09:16] VITALS: PULSE 86
[2017-05-16] MEDS ORDERED: diphenhydrAMINE 25 MG CAP PO ONE ×2 (09:28→09:45)
[2017-05-16 11:27] VITALS: BP 103/51; TEMP 98.8; O2SAT 96
== END 2017-05-16 16:25 | disposition home or self-care (01) ==
LOC: FOBOP 08:57
PROVIDERS: ATTEND Internal Medicine Hematology & Oncology
PROC: 30233N1 Transfusion of Nonautologous Red Blood Cells into Peripheral Vein, Percutaneous Approach (ICD-10-PCS; principal; 2017-05-16)
DX: D64.81 Anemia due to antineoplastic chemotherapy (principal); C50.919 Malignant neoplasm of unspecified site of unspecified female breast
CPT/HCPCS: 36430; J1642; P9016

== ENCOUNTER 2017-06-14 08:47 | Outpatient (CLI) | payer OTHER, BC ==
[2017-06-14] MEDS ORDERED: ALTEPLASE 2 MG VIAL IVP ONE (10:30)
[2017-06-14] MEDS ORDERED: diphenhydrAMINE 25 MG CAP PO PRN (11:41)
[2017-06-14] MEDS ORDERED: diphenhydrAMINE 25 MG CAP PO ONE (11:44)
== END 2017-06-14 16:45 | disposition home or self-care (01) ==
LOC: FOBOP 08:47
PROVIDERS: ATTEND Internal Medicine Hematology & Oncology
PROC: 30233N1 Transfusion of Nonautologous Red Blood Cells into Peripheral Vein, Percutaneous Approach (ICD-10-PCS; principal; 2017-06-14)
DX: D64.81 Anemia due to antineoplastic chemotherapy (principal); C50.919 Malignant neoplasm of unspecified site of unspecified female breast
CPT/HCPCS: 36430; J1642; J2997; P9016

== ENCOUNTER 2017-07-11 13:24 | Outpatient (CLI) | payer OTHER, BC ==
[2017-07-11] MEDS ORDERED: diphenhydrAMINE 25 MG CAP PO ONE ×2 (14:10→14:30)
[2017-07-11 14:41] VITALS: BP 103/53; PULSE 89; TEMP 98.1
== END 2017-07-11 19:48 | disposition home or self-care (01) ==
LOC: FOBOP 13:24
PROVIDERS: ATTEND Internal Medicine Hematology & Oncology
PROC: 30233N1 Transfusion of Nonautologous Red Blood Cells into Peripheral Vein, Percutaneous Approach (ICD-10-PCS; principal; 2017-07-11)
DX: C80.1 Malignant (primary) neoplasm, unspecified (principal)
CPT/HCPCS: 36430; J1642; P9016

== ENCOUNTER 2017-08-01 11:36 | Outpatient (CLI) | payer OTHER, BC ==
[2017-08-01] MEDS ORDERED: diphenhydrAMINE 25 MG CAP PO ONE (12:15)
== END 2017-08-01 17:30 | disposition home or self-care (01) ==
LOC: FOBOP 11:36
PROVIDERS: ATTEND Internal Medicine Hematology & Oncology
PROC: 30233R1 Transfusion of Nonautologous Platelets into Peripheral Vein, Percutaneous Approach (ICD-10-PCS; principal; 2017-08-01)
DX: D64.81 Anemia due to antineoplastic chemotherapy (principal); C50.919 Malignant neoplasm of unspecified site of unspecified female breast
CPT/HCPCS: 36430; J1642; P9016

== ENCOUNTER → 2017-08-16 | Outpatient (CLI) | payer OTHER, BC ==
[~2017-08-16] MED LIST changes: +LIDOCAINE 1% 300 MG/30 ML SDV ONE; -diphenhydrAMINE 25 MG CAP PO ONE
== END ==
LOC: FIMAGING 11:49
PROVIDERS: ATTEND Internal Medicine Hematology & Oncology
PROC: 0W993ZX Drainage of Right Pleural Cavity, Percutaneous Approach, Diagnostic (ICD-10-PCS; principal; 2017-08-16)
DX: J90 Pleural effusion, not elsewhere classified (principal); C50.112 Malignant neoplasm of central portion of left female breast